=== PATIENT | female | born 1995 | race Caucasian/White ===

== ENCOUNTER → 2018-09-12 15:00 | Emergency (ER) | payer OTHER ==
[2018-09-12 18:24] VITALS: BP 100/60
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
== END | disposition home or self-care (01) ==
LOC: ED 15:00
DX: M54.5 Low back pain (principal); Z04.1 Encounter for examination and observation following transport accident
CPT/HCPCS: 72100; 99282